=== PATIENT | female | born 1985 | race Asian ===

== ENCOUNTER → 2016-06-22 | Outpatient (CLI) | payer OTHER ==
[~2016-06-22] MED LIST: PRENTAB26 PO
== END | disposition home or self-care (01) ==
LOC: C.LABSPEC 14:41
PROVIDERS: ATTEND Obstetrics & Gynecology
DX: Z34.83 Encounter for supervision of other normal pregnancy, third trimester (principal)

== ENCOUNTER 2016-07-07 18:48 | Inpatient (IN) | payer OTHER ==
[~2016-07-07] VITALS: Ht 162.6 cm; Wt 63.0 kg
[2016-07-07] MEDS ORDERED: PRENTAB26 PO (19:15)
[2016-07-07 19:17] VITALS: Ht 162.6 cm; Wt 63.0 kg
[2016-07-07] MEDS ORDERED: LACTATED RINGER'S 1000ML 1,000 ML IV PRN (19:17)
[2016-07-07] MEDS ORDERED: LACTATED RINGER'S 1000ML 500 ML IV PRN ×2 (19:19→22:09)
[2016-07-07] MEDS ORDERED: OXYTOCIN 30 UNITS/500ML NSS IV PRN (19:30)
[2016-07-07] MEDS: LACTATED RINGER'S 1000ML 1,000 ML IV SCH ×2 (19:58→22:10)
[2016-07-07 20:04] LABS: HEMATOCRIT 33.7 % (37-47); MEAN CELL VOLUME 88.2 fL (80-100); MEAN CORPUSCULAR HEMOGLOBIN 29.1 pg (25-34); MEAN CORPUSCULAR HGB CONC 32.9 g/dl (32-36); MEAN PLATELET VOLUME 10.3 fL (7.4-10.4); PLATELET COUNT 181 K/uL (130-400); RED BLOOD COUNT 3.82 M/uL (4.2-5.4); WHITE BLOOD COUNT 11.68 K/uL (4.8-10.8)
[2016-07-07] MEDS ORDERED: BUPIVACAINE 0.25% 30 ML VIAL ONE (21:15)
[2016-07-07] MEDS ORDERED: EpHEDrine SULFATE INJ 50 MG/ML AMP ONE (21:16)
[2016-07-07] MEDS ORDERED: FENTANYL CITRATE INJ 50 MCG/1 ML 2 ML VIAL ONE (21:16)
[2016-07-07] MEDS ORDERED: FENTANYL 2MCG/ML ROPIV 1.25MG/ML 100ML BAG EPI ONE (21:16)
[2016-07-07] MEDS ORDERED: NALOXONE HCL INJ 1 MG in SODIUM CHLORIDE 0.9% 1000ML 1,000 ML IV PRN ×4 (22:09)
[2016-07-07] MEDS ORDERED: NALBUPHINE HCL INJ 10 MG/ML AMP IV PRN (22:15)
[2016-07-07] MEDS ORDERED: ONDANSETRON INJ 2 MG/ML 2 ML VIAL IV PRN (22:15)
[2016-07-07] MEDS ORDERED: NALOXONE HCL INJ 0.4 MG/1 ML VIAL/CARP IV PRN (22:15)
[2016-07-07] MEDS ORDERED: DiphenhydrAMINE HCL 50 MG/ML VIAL IV PRN (22:15)
[2016-07-07] MEDS ORDERED: METOCLOPRAMIDE HCL INJ 20 MG in SODIUM CHLORIDE 0.9% 50ML 50 ML IV PRN (22:15)
[2016-07-07] MEDS ORDERED: EpHEDrine SULFATE INJ 50 MG/ML AMP IV PRN (22:15)
[2016-07-07] MEDS ORDERED: PROMETHAZINE HCL INJ 25 MG in SODIUM CHLORIDE 0.9% 50ML 50 ML IV PRN (22:15)
[2016-07-07] MEDS ORDERED: FENTANYL 2MCG/ML ROPIV 1.25MG/ML 100ML BAG EPI PRN (22:15)
[2016-07-07] MEDS ORDERED: METHYLERGONOVINE MALEATE 0.2 MG/ML AMP ONE (23:56)
[2016-07-08] MEDS ORDERED: OXYTOCIN 30 UNITS/500ML NSS IV PRN
[2016-07-08] MEDS ORDERED: BENZOCAINE 20% AER SPR 82.5 GM CAN EXT PRN
[2016-07-08] MEDS ORDERED: ACETAMINOPHEN/CODEINE 300/30MG TAB PO PRN ×2
[2016-07-08] MEDS ORDERED: SUPERCREAM 0.870 % 15GM JAR EXT PRN
[2016-07-08] MEDS ORDERED: ACETAMINOPHEN 325 MG TAB PO PRN
[2016-07-08] MEDS ORDERED: LANOLIN OINT EXT PRN ×2
[2016-07-08] MEDS ORDERED: OXYCODONE/ACETAMINOPHEN 5-325 TAB PO PRN
[2016-07-08] MEDS ORDERED: METHYLERGONOVINE MALEATE 0.2 MG/ML AMP IM ONE
[2016-07-08] MEDS ORDERED: HYDROCORTISONE ACETATE 25 MG SUPP PR PRN
[2016-07-08] MEDS ORDERED: DIPHTHERIA/TETANUS/PERTUSSIS 0.5 ML SYR/VIAL IM. ONE
--- NOTE | 2016-07-08 00:15 | Anesthesia Procedure Note ---
Anesthesia Epidural Removal Nt Date & Time Jul 08, 2016 at 00:16 Vital Signs Pain Intensity: 0.0 Notes Mental Status: alert / awake / arousable, participated in evaluation Nausea / Vomiting: adequately controlled Pain: adequately controlled Airway Patency, RR, SpO2: stable & adequate BP & HR: stable & adequate Hydration State: stable & adequate Neuraxial Anesthesia: was administered Anesthetic Complications: no major complications apparent, pt satisfied with anesthetic care Epidural: removed without complications, with tip intact
--- NOTE | 2016-07-08 00:31 | DELIVERY SUMMARY ---
DATE OF OPERATION: 07/07/2016 DELIVERY NOTE: A 30-year-old, 2, para 2, Indian female in good general health. Blood type is A positive, rubella immune. Vaginal beta strep negative. Due date is 07/15/2016. She was seen in the office. Cervix was about 5+ cm, said she had a little bit of bloody show. She was sent home, checked later in the evening, cervix was then 6 cm and she was sent up to labor and delivery with the diagnosis of active labor. She was placed on the monitor. She had sporadic contractions. She was started on some IV Pitocin when she got to about 7 cm. She requested and received epidural anesthesia from which she obtained good pain relief. Membranes were then ruptured surgically. Fluid was clear. She continued to have a good labor pattern, one to full dilatation, pushed out a live via direct occiput anterior position over an intact perineum. was suctioned through the mouth and the nose. Nuchal cord x1 had to be cut prior to delivery of the shoulders. Then the shoulders and body were delivered without difficulty. In my own estimation one and five minute Apgars were 8 and 9 respectively. Cord blood was taken. With IV Pitocin running, the placenta was removed intact. Inspection of the perineum revealed a first degree vaginal laceration at about 5 0' clock. The vaginal mucosa was approximated with a running 2-0 Vicryl to beyond the hymenal ring. A deep suture of 2-0 Vicryl was used to approximate the bulbocavernosus muscle. A separate deep suture was used to approximate the perineal body and a running subcuticular suture was used to approximate the perineal skin edges. Following this vaginal exam, we removed all the blood clot and sponges in the vagina. At this point, hemostasis was good. The patient tolerated the procedure well. Estimated blood loss was 500 mL. I attest to the content of the Intraoperative Record and any orders documented therein. Any exceptio ns are noted below.
[2016-07-08 03:05] VITALS: BP 102/67; PULSE 86; TEMP 36.8
[2016-07-08 06:30] LABS: HEMATOCRIT 34.9 % (37-47)
[2016-07-08 08:05] VITALS: BP 97/63; PULSE 77; TEMP 36.8; O2SAT 97
[2016-07-08] MEDS: FERROUS SULFATE 325 MG TAB PO SCH (08:42)
[2016-07-08] MEDS: DOCUSATE SODIUM 100 MG CAP PO SCH ×2 (08:42→19:33)
[2016-07-08] MEDS: PRENATAL VITAMIN TAB PO SCH (08:43)
[2016-07-08] MEDS: IBUPROFEN 600 MG TAB PO PRN (08:43)
--- NOTE | 2016-07-08 10:31 | Progress Note ---
Subjective Jul 08, 2016. Subjective conversation w/ patient Ambulation: ambulating normally Voiding: no voiding problems Passing Gas: Yes Diet Tolerance: Regular Diet Lochia: Small Feeding Type: Breast Feeding Review of Systems Constitutional: + fever Objective Vital Signs Date Time Temp Pulse Resp B/P Pulse Ox O2 Delivery O2 Flow Rate FiO2 07/08/16 08:05 97 Room Air 07/08/16 08:05 36.8 77 16 97/63 97 Room Air 07/08/16 03:05 Room Air 07/08/16 03:05 36.8 86 16 102/67 Room Air Physical Exam General Appearance: WELL-APPEARING Abdomen: non tender Fundus: Firm, Non-Tender Extremities: no pedal edema, no calf tenderness Laboratory Results Last 24 Hours Test 07/07/16 19:40 07/08/16 06:10 White Blood Count 11.68 K/uL Red Blood Count 3.82 M/uL Hemoglobin 11.1 g/dL 11.6 g/dL Hematocrit 33.7 % 34.9 % Mean Corpuscular Volume 88.2 fL Mean Corpuscular Hemoglobin 29.1 pg Mean Corpuscular Hemoglobin Concent 32.9 g/dl RDW Standard Deviation 44.6 fL RDW Coefficient of Variation 13.8 % Platelet Count 181 K/uL Mean Platelet Volume 10.3 fL Assessment and Plan Post- Day#: 1
[2016-07-08 11:50] VITALS: BP 96/61; PULSE 86; TEMP 36.7; O2SAT 98
[2016-07-08 15:55] VITALS: BP 94/58; PULSE 83; TEMP 36.8; O2SAT 97
[2016-07-08 19:45] VITALS: BP 95/61; PULSE 99; TEMP 36.8; O2SAT 98
[2016-07-08] MEDS ORDERED: BISACODYL 5 MG TABEC PO SCH (20:00)
[2016-07-08 23:30] VITALS: BP 99/67; PULSE 84; TEMP 36.7; O2SAT 97
[2016-07-09] MEDS: IBUPROFEN 600 MG TAB PO PRN (06:11)
[2016-07-09] MEDS ORDERED: BISACODYL 10 MG SUPP PR PRN (07:00)
[2016-07-09 07:55] VITALS: BP 89/59; PULSE 92; TEMP 36.7
[2016-07-09] MEDS: FERROUS SULFATE 325 MG TAB PO SCH (07:57)
[2016-07-09] MEDS: PRENATAL VITAMIN TAB PO SCH (07:57)
[2016-07-09] MEDS: DOCUSATE SODIUM 100 MG CAP PO SCH (07:57)
--- NOTE | 2016-07-09 09:20 | Progress Note ---
Subjective Jul 09, 2016. Subjective conversation w/ patient Ambulation: ambulating normally Voiding: no voiding problems Passing Gas: Yes Diet Tolerance: Regular Diet Lochia: Small Feeding Type: Breast Feeding Review of Systems Constitutional: + fever Objective Vital Signs Date Time Temp Pulse Resp B/P Pulse Ox O2 Delivery O2 Flow Rate FiO2 07/09/16 07:55 36.7 92 18 89/59 Room Air 07/09/16 07:55 Room Air 07/08/16 23:30 36.7 84 18 99/67 97 Room Air 07/08/16 23:30 97 Room Air 07/08/16 19:45 36.8 99 18 95/61 98 Room Air 07/08/16 15:55 97 Room Air 07/08/16 15:55 36.8 83 16 94/58 97 Room Air 07/08/16 11:50 36.7 86 18 96/61 98 Room Air Physical Exam General Appearance: WELL-APPEARING Abdomen: non tender Fundus: Firm, Non-Tender Extremities: no pedal edema, no calf tenderness Assessment and Plan Post- Day#: 2
--- NOTE | 2016-07-09 09:22 | Discharge Instructions ---
Discharge Instructions Date of Service Jul 09, 2016. Admission Reason for Admission: Check Labor Discharge Discharge Diagnosis / Problem: active labor term Discharge Goals Goal(s): Routine recovery after delivery Activity Recommendations Activity Limitations: as noted below ACTIVITY RECOMMENDATIONS: * Gradual return to full activity over the next 2-3 weeks. * No lifting - nothing heavier than baby over the next 2-3 weeks. * Do not engage in vigorous exercise, sexual activity or sports until cleared by your physician. * Do not drive or operate any motorized equipment until cleared by your physician. * You may shower/bathe daily. DIET: Resume Previous Diet If Breast-feeding: * Increase caloric intake by 500 calories, eat 3 well balanced meals, 2 high protein snacks a day and drink 6-8 8oz. glasses of fluid per day. BREAST CARE: If you are not breast feeding: * Wear a supportive bra 24 hours a day for one to two weeks. * Avoid stimulating your breasts and nipples as much as possible during the first few weeks after delivery. * When taking a shower, have the warm water hit your back, not breasts. * When your breasts feel full, apply ice packs. Usually three to four times a day helps ease the discomfort. * Take a mild pain medication (Tylenol / Motrin) when you are uncomfortable. If breast feeding: * Use breast milk to lubricate nipples. Lansinoh cream may be used for sore nipples. You do not need to remove cream prior to breast feeding. If using a different brand of cream, check the label for directions regarding removal of cream prior to nursing. * Wear a supportive bra. * If having problems with breasts or breast feeding, call a specification consultant or your health care provider. OVER THE COUNTER MEDICATION: * For discomfort or pain, you may use Acetaminophen (Tylenol), Ibuprofen (Advil ), or Naproxen (Aleve) following the package directions. * For constipation you may use Colace following the package directions. SPECIAL CARE INSTRUCTIONS: * Vaginal rest (no tampons, douching, intercourse) until after doctor 's visit. * control as discussed with doctor. * Verbalizes understanding of car seat law as reviewed with patient nursing. * Car Seat hand-out given and reviewed with patient by nursing. * Shaken baby information reviewed with patient by nursing. Call you doctor if: * Temperature greater than or equal to 100.4 degrees F or 38.0 degrees C. Take your temperature twice daily for a week. * Bleeding becomes heavier than the heaviest part of your period - saturating a sanitary pad within an hour. * Passing large clots. * Bleeding has a foul smelling odor. * Signs and symptoms of phlebitis: leg pain, warm, red or swollen area on leg. * "Baby Blues" lasting longer than two weeks. ++ If you have had a and incision has increased pain, redness, swelling, presence of any drainage, or if the incision starts to open up. If you have any questions or concerns, call your health care practitioner at [phone]. FOLLOW-UP VISIT: Please call the office at to schedule a 6 week examination. . Current Hospital Diet Patient's current hospital diet: Regular Diet Discharge Diet Recommended Diet: Regular Diet Pending Studies Studies pending at discharge: no Medical Emergencies . Who to Call and When: Medical Emergencies: If at any time you feel your situation is an emergency, please call 911 immediately. . Non-Emergent Contact Non-Emergency issues call your: Order Packer Or Packager Call Non-Emergent contact if: temperature is above 100.5 . . "Provider Documentation" section prepared by Jan Kerr. VTE Core Measure Inpt VTE Proph given/why not?: Treatment not indicated
[2016-07-09 17:00] VITALS: BP 113/77; PULSE 100; TEMP 36.6
[2016-07-09 18:00] VITALS: BP_DIAS 77; PULSE 100; TEMP 36.6
== END 2016-07-09 18:00 | disposition home or self-care (01) | DRG 775 ==
LOC: C.LD 18:48 → C.OPB 18:48 → C.LD 19:19 → C.OBG 07-08 03:38
PROVIDERS: ADMIT Obstetrics & Gynecology; ATTEND Obstetrics & Gynecology
PROC: 10907ZC Drainage of Amniotic Fluid, Therapeutic from Products of Conception, Via Natural or Artificial Opening (ICD-10-PCS; principal; 2016-07-07)
PROC: 10E0XZZ Delivery of Products of Conception, External Approach (ICD-10-PCS; principal; 2016-07-07)
PROC: 0HQ9XZZ Repair Perineum Skin, External Approach (ICD-10-PCS; principal; 2016-07-07)
DX: O69.81X0 Labor and delivery complicated by cord around neck, without compression, not applicable or unspecified (principal); O70.0 First degree perineal laceration during delivery; O62.3 Precipitate labor; Z3A.38 38 weeks gestation of pregnancy; Z37.0 Single live birth